=== PATIENT | female | born 1995 | race Caucasian/White ===

== ENCOUNTER 2018-01-24 07:13 | Emergency (ER) | payer BC ==
[~2018-01-24] VITALS: Ht 167.6 cm; Wt 53.3 kg
[~2018-01-24 07:13] MED LIST: DEXT5TAB17 PO; PARO20TA98 PO
[2018-01-24] MEDS ORDERED: SODIUM CHLORIDE 0.9% 1,000ML IVBOLUS ONE (07:30)
[2018-01-24] MEDS ORDERED: SODIUM CHLORIDE FLUSH 10ML SYR IVF ONE (07:30)
[2018-01-24] MEDS ORDERED: ONDANSETRON ODT 4 MG PO ONE (08:00)
[2018-01-24] MEDS ORDERED: DICYCLOMINE 20 MG TABLET PO ONE (08:00)
[2018-01-24] MEDS ORDERED: DICYCLOMINE 20 MG TABLET ONE (08:02)
[2018-01-24] MEDS ORDERED: ONDANSETRON ODT 4 MG ONE (08:02)
[2018-01-24 08:09] LABS: ALANINE AMINOTRANSFERASE 50 U/L (12-78); ALBUMIN 4.2 g/dL (3.4-5.0); ANION GAP 10 mmol/L (5-15); CALCIUM 8.9 mg/dL (8.5-10.1); CHLORIDE 105 mmol/L (98-107); CREATININE 1.16 mg/dL (0.55-1.02)
[2018-01-24 08:14] LABS: ALKALINE PHOSPHATASE 64 U/L (45-117)
[2018-01-24 08:28] LABS: MICROSCOPIC INDICATED
[2018-01-24 08:31] LABS: CULTURE INDICATED? YES
[2018-01-24 08:49] LABS: BASOPHILS # (AUTO) 0.01 x10^3/uL (0-0.1); BASOPHILS % (AUTO) 0 % (0-1); EOSINOPHILS % (AUTO) 0 % (1-7); LYMPHOCYTES # (AUTO) 0.38 x10^3/uL (1-3.4); LYMPHOCYTES % (AUTO) 4 % (22-44); MD NO; MEAN CORPUSCULAR HGB CONC 33.7 g/dL (32.4-35.8); MEAN CORPUSCULAR VOLUME 91.9 fL (80-100); MEAN PLATELET VOLUME 8.9 fL (7.4-10.4); MONOCYTES # (AUTO) 0.38 x10^3/uL (0.2-0.8); MONOCYTES % (AUTO) 4 % (2-9); NEUTROPHILS # (AUTO) 9.31 x10^3/uL (1.8-6.8); NEUTROPHILS % (AUTO) 92 % (42-75); PLATELET COUNT 242 x10^3/uL (130-400); RED BLOOD COUNT 5.05 x10^6/uL (3.82-5.3); RED CELL DISTRIBUTION WIDTH 13.3 % (9.6-15.2)
[2018-01-24 08:54] LABS: CLOSTRIDIUM DIFFICILE ANTIGEN NEGATIVE; CLOSTRIDIUM DIFFICILE TOXIN NEGATIVE (Negative)
[2018-01-24] MEDS ORDERED: MORPHINE SULFATE 4 MG/ML, 1ML ONE (09:03)
[2018-01-24] MEDS ORDERED: KETOROLAC 30 MG/1 ML ONE (09:09)
[2018-01-24] MEDS ORDERED: MORPHINE SULFATE 4 MG/ML, 1ML IVPush PRN (09:30)
[2018-01-24] MEDS ORDERED: KETOROLAC 30 MG/1 ML IVPush ONE (09:30)
[2018-01-24] MEDS ORDERED: OMNIPAQUE 350 MG/ML, 100ML BOTTLE ONE (09:52)
[2018-01-24 11:07] VITALS: BP 96/49
== END 2018-01-24 11:10 | disposition home or self-care (01) ==
LOC: ED 10:38
DX: K52.9 Noninfective gastroenteritis and colitis, unspecified (principal)
CPT/HCPCS: 36415; 74177; 80053; 81001; 84703; 85025; 87086; 87147; 87324; 89055; 96361; 96374; 96375; 99285; J1885; J7030; Q0162; Q9967

== ENCOUNTER 2018-02-21 21:45 | Emergency (ER) | payer BC ==
[~2018-02-21] VITALS: Ht 167.6 cm; Wt 54.7 kg
[2018-02-21 21:58] VITALS: BP 126/86
[2018-02-21] MEDS ORDERED: LIDOCAINE-MPF 1%, 5ML ONE (22:22)
[2018-02-21] MEDS ORDERED: DIPH,PERTUSS(ACELL),TET VAC/PF 0.5 ML IM-VACC ONE ×2 (22:24→22:30)
[2018-02-21] MEDS ORDERED: LIDOCAINE-MPF 1%, 5ML INFIL ONE (22:30)
[2018-02-21] MEDS ORDERED: BACITRACIN ZINC OINT 500U/GM, 0.9 GM ONE (23:21)
== END 2018-02-21 23:27 | disposition home or self-care (01) ==
LOC: ED 23:05
DX: S01.412A Laceration without foreign body of left cheek and temporomandibular area, initial encounter (principal); F41.1 Generalized anxiety disorder; W22.8XXA Striking against or struck by other objects, initial encounter; Y93.89 Activity, other specified; Y92.009 Unspecified place in unspecified non-institutional (private) residence as the place of occurrence of the external cause; Y99.8 Other external cause status
CPT/HCPCS: 12051; 70486; 90471; 90715; 99284

== ENCOUNTER → 2018-09-07 | Outpatient (CLI) | payer OTHER | END | disposition home or self-care (01) | LOC: RAD 09:59 | PROVIDERS: ATTEND Internal Medicine Hematology & Oncology | DX: M54.5 Low back pain (principal); Z97.5 Presence of (intrauterine) contraceptive device | CPT/HCPCS: 72110 ==

== ENCOUNTER 2019-03-06 16:44 | Emergency (ER) | payer BC, OTHER ==
[~2019-03-06] VITALS: Ht 167.6 cm; Wt 54.0 kg
[2019-03-06 17:16] VITALS: BP 97/63
--- NOTE | 2019-03-06 17:18 | NUR ---
FIRST CONTACT WITH PT. PT C/O N/V SINCE THIS MORNING WITH GENERALIZED BODY ACHES. LMP 03/06/19. PT'S AOX4. RESPS EVEN AND UNLABORED. BP/SPO2 MONITORS IN PLACE. CALL LIGHT WITHIN REACH.
[2019-03-06] MEDS ORDERED: ONDANSETRON ODT 4 MG ONE (17:56)
--- NOTE | 2019-03-06 17:58 | NUR ---
PT MEDICATED PER EMAR. PT TOLERATED WELL.
[2019-03-06] MEDS ORDERED: ONDANSETRON ODT 4 MG PO PRN (18:00)
--- NOTE | 2019-03-06 18:05 | NUR ---
Patient given discharge instructions and they have confirmed that they understand the instructions. Patient ambulatory with steady gait.
== END 2019-03-06 18:06 | disposition home or self-care (01) ==
LOC: ED 18:00
DX: R11.2 Nausea with vomiting, unspecified (principal)
CPT/HCPCS: 99283; Q0162

== ENCOUNTER 2019-06-14 20:16 | Emergency (ER) | payer BC ==
[~2019-06-14] VITALS: Ht 167.6 cm; Wt 56.8 kg
[2019-06-14 20:36] VITALS: BP 119/77
== END 2019-06-14 21:47 | disposition home or self-care (01) ==
LOC: ED 21:10
DX: S61.412A Laceration without foreign body of left hand, initial encounter (principal); X58.XXXA Exposure to other specified factors, initial encounter; Y93.89 Activity, other specified; Y92.009 Unspecified place in unspecified non-institutional (private) residence as the place of occurrence of the external cause; Y99.8 Other external cause status
CPT/HCPCS: 99282

== ENCOUNTER 2021-01-16 16:27 | Emergency (ER) | payer BC ==
--- NOTE | 2021-01-16 16:44 | NUR ---
CALLED FOR TRIAGE, NO ANSWER
--- NOTE | 2021-01-16 16:55 | NUR ---
CALLED FOR TRIAGE, NO ANSWER
--- NOTE | 2021-01-16 17:29 | NUR ---
CALLED FOR TRIAGE, NO ANSWER
== END 2021-01-16 17:30 | disposition left against medical advice (07) ==
LOC: ED 17:00
DX: R10.9 Unspecified abdominal pain (principal); Z53.21 Procedure and treatment not carried out due to patient leaving prior to being seen by health care provider